=== PATIENT | female | born 1945 | race Caucasian/White ===

== ENCOUNTER 2023-10-15 17:01 | Inpatient (IN) | payer MEDICARE, BC ==
[~2023-10-15] VITALS: Ht 154.9 cm; Wt 69.7 kg
[2023-10-15 18:23] LABS: BASO # 0.1 10^3/uL (0.0-0.2); BASO % 1.1 % (0.0-1.0); EOS # 0.2 10^3/uL (0.0-0.5); EOS % 1.4 % (0.0-3.0); HEMATOCRIT 42.4 % (36.0-47.0); HEMOGLOBIN 14.3 g/dl (12.0-15.5); LYMPH # 1.1 10^3/uL (1.5-5.0); LYMPH % 10.1 % (24.0-44.0); MEAN CORPUSCULAR HEMOGLOBIN 32.2 pg (27.0-33.0); MEAN CORPUSCULAR HGB CONC 33.7 g/dl (32.0-36.5); MEAN CORPUSCULAR VOLUME 95.5 fl (80.0-96.0); MONO # 1.1 10^3/uL (0.0-0.8); MONO % 10.1 % (2.0-8.0); NEUTROPHILS # 8.2 10^3/uL (1.5-8.5); NEUTROPHILS % 76.7 % (36.0-66.0); PLATELET COUNT, AUTOMATED 216 10^3/uL (150-450); RED BLOOD COUNT 4.44 10^6/uL (4.00-5.40); WHITE BLOOD COUNT 10.7 10^3/uL (4.0-10.0)
[2023-10-15] MEDS ORDERED: VALS1TAB68 PO (18:42)
[2023-10-15] MEDS ORDERED: ELIQ5TAB PO (18:42)
[2023-10-15] MEDS ORDERED: OYST500C PO ×2 (18:42)
[2023-10-15] MEDS ORDERED: ROSU10TA61 PO (18:42)
[2023-10-15] MEDS ORDERED: CHLO125TA PO (18:42)
[2023-10-15] MEDS ORDERED: LEVO112T2 PO (18:42)
[2023-10-15 18:43] LABS: INR 1.1; PARTIAL THROMBOPLASTIN TIME 28.2 SECONDS (24.8-34.2); PROTHROMBIN TIME 13.8 SECONDS (12.5-14.5)
[2023-10-15 18:45] LABS: CK-MB VALUE MASS 1.4 NG/ML (<3.6)
[2023-10-15 18:49] LABS: FREE T4 1.78 NG/DL (0.89-1.76); THYROID STIMULATING HORMONE 1.626 uIU/ML (0.55-4.78)
[2023-10-15 18:53] LABS: ALBUMIN 3.4 G/DL (3.2-5.2); BILIRUBIN,DIRECT 0.1 MG/DL (<0.4); BILIRUBIN,TOTAL 0.5 MG/DL (0.3-1.2); CALCIUM LEVEL 9.2 MG/DL (8.3-10.6); CREATININE FOR GFR 1.1 MG/DL (0.55-1.30); GLOMERULAR FILTRATION RATE 51.3 (>39); MAGNESIUM LEVEL 2.1 MG/DL (1.8-2.4); POTASSIUM SERUM 4.2 MMOL/L (3.5-5.1); TOTAL PROTEIN 6.6 G/DL (5.7-8.2)
[2023-10-15 18:58] LABS: MB/CK RELATIVE INDEX 1.27 (< OR =4)
[2023-10-15] MEDS: METOPROLOL TART 25 MG TABLET PO ONE ×2 (20:17→21:48)
[2023-10-15] MEDS: NS 500 ML IV ONE (20:17)
[2023-10-15] MEDS: METOPROLOL 5 MG/5 ML VIAL IV SCH (20:18)
[2023-10-15 21:05] LABS: CK-MB VALUE MASS 1.7 NG/ML (<3.6)
[2023-10-15 21:07] LABS: MB/CK RELATIVE INDEX 1.65 (< OR =4)
[2023-10-15] MEDS ORDERED: METO1TAB32 PO (23:36)
[2023-10-15] MEDS ORDERED: HOME MED LIST COMPLETE! XX SCH (23:40)
[2023-10-16] VITALS (10 sets, daily range): BP systolic 78–124; BP diastolic 58–67; TEMP 97.2–98; O2SAT 95–98
[2023-10-16] MEDS ORDERED: ACETAMINOPHEN TAB 650MG DOSE (2X325MG) PO PRN (00:30)
[2023-10-16] MEDS: NS 500 ML IV SCH (01:40)
[2023-10-16] MEDS: dilTIAZem 25MG/5ML VIAL IV STA (01:41)
[2023-10-16] MEDS: dilTIAZem HCL 125 MG in NS 100 ML IV SCH (04:40)
[2023-10-16] MEDS: LEVOTHYROXINE 100MCG TABLET (0.1MG) PO SCH (05:45)
[2023-10-16] MEDS: APIXABAN 5 MG TAB (ELIQUIS) PO SCH (08:15)
[2023-10-16] MEDS: ROSUVASTATIN 10 MG TAB (CRESTOR) PO SCH (08:16)
[2023-10-16] MEDS: METOPROLOL SUCC *XL* 25MG TAB (TopROL *XL*) PO SCH (08:16)
[2023-10-16] MEDS ORDERED: LEVOTHYROXINE 112MCG TABLET (0.112MG) PO SCH (09:00)
[2023-10-16] MEDS: AMIODARONE HCL 150 MG in IV 1 EA IV ONE (09:59)
[2023-10-16] MEDS: AMIODARONE HCL 360 MG in IV 1 EA IV SCH ×2 (10:18→16:27)
[2023-10-16] MEDS: NS 500 ML IV PRN (16:45)
[2023-10-17] VITALS (8 sets, daily range): BP systolic 94–106; BP diastolic 56–73; TEMP 96.5–98.9; O2SAT 93–97
[2023-10-17 06:02] LABS: CALCIUM LEVEL 8.7 MG/DL (8.3-10.6); CREATININE FOR GFR 1.1 MG/DL (0.55-1.30); GLOMERULAR FILTRATION RATE 51.3 (>39); HEMATOCRIT 44.5 % (36.0-47.0); HEMOGLOBIN 14.9 g/dl (12.0-15.5); MEAN CORPUSCULAR HEMOGLOBIN 32.5 pg (27.0-33.0); MEAN CORPUSCULAR HGB CONC 33.5 g/dl (32.0-36.5); MEAN CORPUSCULAR VOLUME 96.9 fl (80.0-96.0); PLATELET COUNT, AUTOMATED 202 10^3/uL (150-450); POTASSIUM SERUM 3.9 MMOL/L (3.5-5.1); RED BLOOD COUNT 4.59 10^6/uL (4.00-5.40); WHITE BLOOD COUNT 8.5 10^3/uL (4.0-10.0)
[2023-10-17] MEDS: AMIODARONE 200 MG TAB (PACERONE) PO SCH (19:29)
[2023-10-17] MEDS: METOPROLOL TART 50 MG TAB PO ONE (21:07)
[2023-10-18 00:21] VITALS: BP 100/60; TEMP 96.9; O2SAT 94
[2023-10-18 01:40] VITALS: BP 99/63
[2023-10-18 04:04] VITALS: BP 111/59; TEMP 97.7; O2SAT 94
[2023-10-18] MEDS ORDERED: EPINEPHrine 1MG/10ML SYRINGE 1.5IN As Ordered ONE (06:50)
[2023-10-18] MEDS ORDERED: ATROPINE SULF 1MG/10ML SYRINGE As Ordered ONE (06:50)
[2023-10-18] MEDS ORDERED: propofoL 200 MG/20 ML VIAL As Ordered ONE (06:51)
[2023-10-18] MEDS ORDERED: LIDOCAINE 2% 100MG/5ML SDV (FOR ANES.) As Ordered ONE (06:51)
[2023-10-18 08:00] VITALS: BP 104/69; TEMP 97.6; O2SAT 94
[2023-10-18] MEDS: AMIODARONE 200 MG TAB (PACERONE) PO SCH (09:00)
[2023-10-18 12:00] VITALS: BP 109/55; TEMP 97.5; O2SAT 94
[2023-10-18] MEDS ORDERED: AMIO200T49 PO (13:23)
== END 2023-10-18 14:50 | disposition home or self-care (01) | DRG 310 ==
LOC: M ED 17:01 → M ED INP 10-16 00:26 → M PCU 10-16 04:48
PROVIDERS: ADMIT Preventive Medicine Undersea and Hyperbaric Medicine; ATTEND Internal Medicine
PROC: B246ZZZ Ultrasonography of Right and Left Heart (ICD-10-PCS; principal; 2023-10-16)
PROC: 5A2204Z Restoration of Cardiac Rhythm, Single (ICD-10-PCS; 2023-10-18)
DX: I48.0 Paroxysmal atrial fibrillation (principal); I48.92 Unspecified atrial flutter; E03.9 Hypothyroidism, unspecified; I10 Essential (primary) hypertension; Z79.01 Long term (current) use of anticoagulants; Z79.890 Hormone replacement therapy; Z79.899 Other long term (current) drug therapy; Z88.0 Allergy status to penicillin; Z88.5 Allergy status to narcotic agent; Z96.653 Presence of artificial knee joint, bilateral